=== PATIENT | male | born 1970 | race African-American/Black ===

== ENCOUNTER 2021-07-31 13:43 | Emergency (ER) | payer OTHER ==
[2021-07-31] MEDS ORDERED: IBUPROFEN 400 MG TAB ONE (14:37)
[2021-07-31] MEDS ORDERED: ACETAMINOPHEN 500 MG TAB ONE (14:38)
--- NOTE | 2021-07-31 15:15 | RAD REPORT ---
EXAM DESCRIPTION: RAD - Knee Right 3 View - 07/31/2021 2:59 pm CLINICAL HISTORY: puncture wound COMPARISON: No comparisons FINDINGS/IMPRESSION: No acute fracture. No malalignment. Mild patellofemoral and medial compartment spurring. Small knee effusion. No radiopaque foreign body.
[2021-07-31] MEDS ORDERED: LIDOCAINE 1% MPF 5 ML VIAL ONE (16:53)
[2021-07-31] MEDS ORDERED: NA CHLORIDE 0.9% 500 ML ONE (17:57)
[2021-07-31] MEDS ORDERED: CEFTRIAXONE 1000 MG/VIAL ONE (17:57)
[2021-07-31 18:06] LABS: Appearance TURBID (CLEAR); Body Fluid Source SYNOVIAL; Body Fluid WBC 299 /mm^3; Color of fluid Red (COLORLESS)
[2021-07-31 18:20] LABS: Urine Blood Negative (Negative); Urine Glucose Negative (Negative); Urine Protein Trace (Negative); Urine Specific Gravity >=1.030 (1.005-1.030)
[2021-07-31 18:20] LABS: Absolute Lymphocytes (CBC) 2.2 K/uL (0.7-4.9); Hematocrit 39.3 % (39.6-49.0); Lymphocytes % 40.2 % (15.3-44.8); MPV 7.3 fL (7.6-11.3); RBC Red Blood Cell Count 3.87 M/uL (4.33-5.43)
[2021-07-31 18:24] LABS: Protime INR 0.98
[2021-07-31 18:36] LABS: BUN Blood Urea Nitrogen 9 mg/dL (7-18); Bicarbonate 28 mmol/L (21-32); Glomerular Filtration Rate 92 ml/min (=/>90); Glucose Level 88 mg/dL (74-106); Potassium 3.8 mmol/L (3.5-5.1); Sodium Level 139 mmol/L (136-145)
[2021-07-31 18:37] LABS: C-Reactive Protein < 2.90 mg/L (<3.00)
[2021-07-31 19:03] LABS: Urine Bacteria <20 /HPF (NONE SEEN); Urine RBC <5 /HPF (NONE SEEN)
--- NOTE | 2021-07-31 19:56 | ER ---
Nurse's Notes [facility] Name: Marycruz Falk Age: 51 yrs Sex: Male : 1970 Arrival Date: 07/31/2021 Time: 13:44 Bed 11 Private MD: Diagnosis: Effusion, right knee;Puncture wound without foreign body, right knee, initial encounter Presentation: 07/31 14:24 Chief complaint: Patient states: he was at work yesterday when he was injured by wire ap3 in a vehicle seat. patient presents with a right upper thigh wound. patient complains of pain 6/10. Coronavirus screen: At this time, the client does not indicate any symptoms associated with coronavirus-19. Ebola Screen: No symptoms or risks identified at this time. Initial Sepsis Screen: Does the patient meet any 2 criteria? No. Patient's initial sepsis screen is negative. Does the patient have a suspected source of infection? No. Patient's initial sepsis screen is negative. Risk Assessment: Do you want to hurt yourself or someone else? Patient reports no desire to harm self or others. Onset of symptoms was July 30, 2021. 14:24 Method Of Arrival: Ambulatory ap3 14:24 Acuity: RIC 4 ap3 16:44 Acuity: RIC 3 iw Triage Assessment: 14:27 General: Appears in no apparent distress. comfortable, Behavior is calm, cooperative, ap3 appropriate for age. Pain: Complains of pain in medial aspect of right thigh Pain currently is 6 out of 10 on a pain scale. Neuro: Level of Consciousness is awake, alert, obeys commands, Oriented to person, place, time, situation, Speech is normal. Cardiovascular: Patient's skin is warm and dry. Respiratory: Airway is patent Respiratory effort is even, unlabored. Musculoskeletal: Reports pain in medial aspect of right thigh. Injury Description: Puncture sustained to medial aspect of right thigh. Historical: - Allergies: 14:26 Tetanus-Diphtheria Toxoids-Td; ap3 - Home Meds: 14:26 None [Active]; ap3 - PMHx: 14:26 None; ap3 - Immunization history:: Client reports receiving the 2nd dose of the Covid vaccine, Last tetanus immunization: < 10 years ago. - Social history:: Smoking status: Patient denies any tobacco usage or history of. Screenin:27 Abuse screen: Denies threats or abuse. Nutritional screening: No deficits noted. ap3 Tuberculosis screening: No symptoms or risk factors identified. Fall Risk None identified. Assessment: 15:30 General: Appears in no apparent distress. Behavior is calm, cooperative. Pain: iw Complains of pain in medial aspect of right knee and medial aspect of right thigh. Neuro: Rouse Agitation-Sedation Scale (RASS): Level of Consciousness is awake, alert, obeys commands, Oriented to person, place, time, situation, Moves all extremities. Full function. Cardiovascular: Patient's skin is warm and dry. Respiratory: Respiratory effort is even, unlabored, Respiratory pattern is regular. 18:30 Reassessment: Patient appears in no apparent distress at this time. Patient and/or iw family updated on plan of care and expected duration. Pain level reassessed. Patient is alert, oriented x 3, equal unlabored respirations, skin warm/dry/pink. 20:24 Reassessment: Patient is alert, oriented x 3, equal unlabored respirations, skin bb warm/dry/pink. pt verbalized understanding of and agrees to plan of care discharge instructions given pt ambulated with steady gait to exit. Vital Signs: 14:24 BP 134 / 93; Pulse 86; Resp 17; Temp 98.9; Pulse Ox 100% ; Weight 94.35 kg; Height 6 ap3 ft. 2 in. (187.96 cm); Pain 6/10; 20:25 BP 156 / 97; Pulse 63; Resp 16 S; Pulse Ox 100% ; bb 14:24 Body Mass Index 26.71 (94.35 kg, 187.96 cm) ap3 ED Course: 13:44 Patient arrived in ED. am2 13:47 Jv Baez PA is PHCP. cp 13:47 Mark Dubois MD is Attending Physician. cp 14:26 Triage completed. ap3 14:28 Arm band placed on right wrist. ap3 14:28 Patient has correct armband on for positive identification. Pulse ox on. NIBP on. ap3 15:01 XRAY Knee RIGHT 3 view In Process Unspecified. EDMS 16:43 Leandra Mayorga, RN is Primary Nurse. iw 18:20 Inserted saline lock: 20 gauge in left antecubital area, using aseptic technique. Blood tp1 collected. 19:52 Polo Barnard MD is Referral Physician. cp 20:25 No provider procedures requiring assistance completed. IV discontinued, intact, bb bleeding controlled, No redness/swelling at site. Pressure dressing applied. Administered Medications: 14:35 Drug: Ibuprofen 800 mg Route: PO; ap3 15:26 Follow up: Response: No adverse reaction ap3 14:35 Drug: Tylenol 1000 mg Route: PO; ap3 15:27 Follow up: Response: No adverse reaction ap3 18:17 Drug: NS 0.9% 500 ml Route: IV; Rate: bolus; Site: left antecubital; iw 18:17 Drug: Rocephin - (cefTRIAXone) 1 grams Route: IVPB; Infused Over: 30 mins; Site: left iw antecubital; Medication: 14:28 VIS not applicable for this client. ap3 Outcome: 19:55 Discharge ordered by MD. cp 20:25 Discharged to home ambulatory. bb 20:25 Condition: stable 20:25 Discharge instructions given to patient, Instructed on discharge instructions, follow up and referral plans. no driving heavy equipment, medication usage, Demonstrated understanding of instructions, follow-up care, medications, Prescriptions given X 3. 20:26 Patient left the ED. bb Signatures: Dispatcher [employer] EDMS Ainsley Sidhu RN RN bb Leandra Mayorga RN RN iw Jv Baez PA PA Oumou Sorenson Amanda, RN RN ap3 Manisha Tinajero tp1 Corrections: (The following items were deleted from the chart) 14:27 14:26 Allergies: No Known Allergies; ap3 ap3
--- NOTE | 2021-07-31 19:56 | EDPHYS ---
Physician Documentation [facility] Name: Marycruz Falk Age: 51 yrs Sex: Male : 1970 Arrival Date: 07/31/2021 Time: 13:44 Bed 11 Private MD: ED Physician Mark Dubois HPI: 07/31 14:25 This 51 yrs old Black Male presents to ER via Unassigned with complaints of Leg Injury. cp 14:25 The patient presents with a puncture wound, sharp edge of wire in work truck. cp 14:25 The complaints affect the medial aspect of right knee. Context: the patient can fully cp bear weight, the patient is able to ambulate, with mild difficulty. Onset: The symptoms/episode began/occurred last night. Associated signs and symptoms: Pertinent positives: swelling, warmth, Pertinent negatives calf tenderness, fever, numbness. Treatment prior to arrival includes: no previous treatment. Historical: - Allergies: 14:26 Tetanus-Diphtheria Toxoids-Td; ap3 - Home Meds: 14:26 None [Active]; ap3 - PMHx: 14:26 None; ap3 - Immunization history:: Client reports receiving the 2nd dose of the Covid vaccine, Last tetanus immunization: < 10 years ago. - Social history:: Smoking status: Patient denies any tobacco usage or history of. ROS: 14:30 MS/extremity: Positive for pain, puncture, swelling, tenderness, of the medial aspect cp of right knee. 14:30 Constitutional: Negative for body aches, chills, fever. cp 14:30 Respiratory: Negative for cough, shortness of breath, wheezing. Exam: 14:35 Constitutional: The patient appears in no acute distress, alert, awake, non-toxic, well cp developed, well nourished, afebrile 14:35 Head/Face: Normocephalic, atraumatic. cp 14:35 Eyes: Periorbital structures: appear normal, Conjunctiva: normal, no exudate, no injection, Sclera: no appreciated abnormality, Lids and lashes: appear normal, bilaterally. 14:35 ENT: External ear(s): are unremarkable, Nose: is normal, Mouth: Lips: moist, Oral mucosa: moist, Posterior pharynx: Airway: no evidence of obstruction, patent. 14:35 Chest/axilla: Inspection: normal. 14:35 Cardiovascular: Rate: normal, Rhythm: regular, Edema: is not appreciated, JVD: is not appreciated. 14:35 Respiratory: the patient does not display signs of respiratory distress, Respirations: normal, no use of accessory muscles, no retractions, labored breathing, is not present, Breath sounds: are clear throughout, no decreased breath sounds. 14:35 Abdomen/GI: Exam negative for discomfort, distension, guarding, Inspection: abdomen appears normal. 14:35 Back: pain, is absent, ROM is normal. 14:35 Musculoskeletal/extremity: Extremities: grossly normal except: noted in the medial aspect of right knee: puncture, swelling, tenderness, ROM: limited passive range of motion due to pain, in the right knee, Perfusion: the extremity is normally perfused throughout, the right leg Sensation intact. Joints: the right knee displays swelling, tenderness along medial and lateral joint line, Weight bearing: able to fully bear weight, without difficulty. 14:35 Skin: no rash present. Vital Signs: 14:24 BP 134 / 93; Pulse 86; Resp 17; Temp 98.9; Pulse Ox 100% ; Weight 94.35 kg; Height 6 ap3 ft. 2 in. (187.96 cm); Pain 6/10; 20:25 BP 156 / 97; Pulse 63; Resp 16 S; Pulse Ox 100% ; bb 14:24 Body Mass Index 26.71 (94.35 kg, 187.96 cm) ap3 Procedures: 17:10 Joint Treatment: Aspiration of right knee using 22g spinal needle. Removed 4 ml's of rn clear fluid, bloody fluid, Specimen sent to lab. Dressed with band aid, Patient tolerated well. of right knee and medial aspect of right knee anesthesia with lidocaine, 5 cc, after betadine clean x 2. MDM: 16:38 Patient medically screened. cp 17:12 ED course: Pt consented for knee aspiration, knee fluid aspirated, walked to lab. rn Bloodwork ordered. Low risk of septic knee, but poked with spring wire near knee recently, new right knee pain and swelling, and knee effusion of xray. Explained this to patient and consents/understands reasoning behind knee aspiration.. 19:55 Data reviewed: vital signs, nurses notes, lab test result(s), radiologic studies, plain cp films, I have discussed the patient's presentation/case with the attending Emergency Department Physician; and as a result, I will discharge patient. 19:55 Counseling: I had a detailed discussion with the patient and/or guardian regarding: the cp historical points, exam findings, and any diagnostic results supporting the discharge/admit diagnosis, lab results, radiology results, the need for outpatient follow up, a orthopedic surgeon, to return to the emergency department if symptoms worsen or persist or if there are any questions or concerns that arise at home. Response to treatment: the patient's symptoms have mildly improved after treatment, and as a result, I will discharge patient. 07/31 16:39 Order name: CBC with Diff; Complete Time: 19:00 07/31 19:00 Interpretation: Normal except: RBC 3.87; HGB 13.1; HCT 39.3; MCV 101.4; MPV 7.3; BASO% cp 1.4. 07/31 16:39 Order name: BMP; Complete Time: 19:00 07/31 16:39 Order name: PT-INR; Complete Time: 18:27 07/31 16:39 Order name: Ptt, Activated; Complete Time: 18:27 07/31 16:39 Order name: CRP; Complete Time: 19:00 07/31 16:39 Order name: Blood Culture Adult (2) 07/31 16:39 Order name: ESR; Complete Time: 19:00 07/31 16:50 Order name: Procalcitonin; Complete Time: 19:00 07/31 16:53 Order name: Urine Microscopic Only; Complete Time: 19:28 07/31 19:28 Interpretation: Reviewed. 07/31 17:09 Order name: Fluid Cell Count,Body; Complete Time: 18:27 07/31 19:01 Interpretation: Normal except: FLUID COLOR Red; APPEAR TURBID. 07/31 17:09 Order name: Body Fluid Culture 07/31 19:49 Interpretation: Within normal limits. 07/31 17:09 Order name: Crystals, Fluid 07/31 18:20 Order name: Urine Dipstick-Ancillary; Complete Time: 18:27 EDWI 07/31 19:05 Order name: Urine Culture [facility] 07/31 14:26 Order name: XRAY Knee RIGHT 3 view; Complete Time: 16:04 cp 07/31 16:39 Order name: IV; Complete Time: 19:30 cp Administered Medications: 14:35 Drug: Ibuprofen 800 mg Route: PO; ap3 15:26 Follow up: Response: No adverse reaction ap3 14:35 Drug: Tylenol 1000 mg Route: PO; ap3 15:27 Follow up: Response: No adverse reaction ap3 18:17 Drug: NS 0.9% 500 ml Route: IV; Rate: bolus; Site: left antecubital; iw 18:17 Drug: Rocephin - (cefTRIAXone) 1 grams Route: IVPB; Infused Over: 30 mins; Site: left iw antecubital; Disposition Summary: 07/31/21 19:55 Discharge Ordered Location: Home cp Problem: new cp Symptoms: have improved cp Condition: Stable cp Diagnosis - Effusion, right knee cp - Puncture wound without foreign body, right knee, initial encounter cp Followup: cp - With: Polo Barnard MD - When: 2 - 3 days - Reason: Worsening of condition Discharge Instructions: - Discharge Summary Sheet cp - Knee Effusion cp - Puncture Wound cp - Form - Excuse from Work, School, or Physical Activity cp Forms: - Medication Reconciliation Form cp - Thank You Letter cp - Antibiotic Education cp - Prescription Opioid Use cp Prescriptions: - Ibuprofen 800 mg Oral Tablet - take 1 tablet by ORAL route every 8 hours As needed take with food; 30 tablet; cp Refills: 0, Product Selection Permitted - Tramadol 50 mg Oral Tablet - take 1 tablet by ORAL route every 8 hours as needed; 12 tablet; Refills: 0, cp Product Selection Permitted - Bactrim DS 800-160 mg Oral Tablet - take 1 tablet by ORAL route every 12 hours for 10 days; 20 tablet; Refills: 0, cp Product Selection Permitted Addendum: 08/02/2021 23:55 Co-signature as Attending Physician, Mark Dubois MD. r n Signatures: Dispatcher [employer] Leandra Abel RN RN iw Mark Dubois MD MD rn Page, Corey, PA PA cp Oumou Mae RN RN ap3 Corrections: (The following items were deleted from the chart) 07/31 14: 14:26 Allergies: No Known Allergies; ap3 ap3 17:12 17:10 Joint Treatment: Aspiration of right knee using 22g spinal needle. Removed 4 ml's rn of clear fluid, bloody fluid, Specimen sent to lab. Dressed with band aid, Patient tolerated well. rn
[2021-07-31 20:44] VITALS: TEMP 98.9; O2SAT 100
[2021-07-31 20:46] VITALS: BP 156/97
== END 2021-07-31 20:26 | disposition home or self-care (01) ==
LOC: ER 13:43
PROC: 0S9C3ZX Drainage of Right Knee Joint, Percutaneous Approach, Diagnostic (ICD-10-PCS; principal; 2021-07-31)
DX: S81.031A Puncture wound without foreign body, right knee, initial encounter (principal); M25.461 Effusion, right knee; Z88.7 Allergy status to serum and vaccine
CPT/HCPCS: 36415; 80048; 81003; 81015; 84145; 85025; 85610; 85652; 85730; 86140; 87040; 87070; 87086; 87088; 89050; 89060; 96374; 99284; J7040